=== PATIENT | male | born 1990 | race Caucasian/White ===

== ENCOUNTER 2016-08-08 10:07 | Emergency (ER) | payer OTHER ==
[2016-08-08 11:17] LABS: HEMOGLOBIN 15.9 gm/dl (14.0-17.5); RED BLOOD COUNT 5.79 M/UL (4.20-5.50); WHITE BLOOD COUNT 8.2 K/UL (4.5-11.0)
[2016-08-08 11:55] LABS: BUN/CREATININE RATIO 24 (0-10)
== END 2016-08-08 13:45 | disposition home or self-care (01) ==
LOC: ER1 10:07
PROVIDERS: Physician Assistant
DX: R07.89 Other chest pain (principal); I10 Essential (primary) hypertension; Z88.2 Allergy status to sulfonamides; Z88.5 Allergy status to narcotic agent; Z88.1 Allergy status to other antibiotic agents; Z87.891 Personal history of nicotine dependence
CPT/HCPCS: 36415; 71010; 80053; 82550; 82553; 83874; 84484; 85025; 93005; 99285; J1885

== ENCOUNTER 2016-10-30 07:06 | Emergency (ER) | payer OTHER ==
[2016-10-30 07:52] LABS: HEMOGLOBIN 15.1 gm/dl (14.0-17.5); RED BLOOD COUNT 5.34 M/UL (4.20-5.50); WHITE BLOOD COUNT 9.6 K/UL (4.5-11.0)
[2016-10-30 08:11] LABS: BUN/CREATININE RATIO 22 (0-10)
== END 2016-10-30 08:48 | disposition home or self-care (01) ==
LOC: ER1 07:06
PROVIDERS: Emergency Medicine
DX: R07.9 Chest pain, unspecified (principal); F32.9 Major depressive disorder, single episode, unspecified; Z88.2 Allergy status to sulfonamides; Z88.5 Allergy status to narcotic agent; Z79.899 Other long term (current) drug therapy
CPT/HCPCS: 36415; 71020; 80053; 84484; 85025; 99285

== ENCOUNTER 2016-11-01 05:35 | Emergency (ER) | payer OTHER ==
[2016-11-01 06:53] LABS: BUN/CREATININE RATIO 33 (0-10); HEMOGLOBIN 14.6 gm/dl (14.0-17.5); RED BLOOD COUNT 5.08 M/UL (4.20-5.50); WHITE BLOOD COUNT 10.5 K/UL (4.5-11.0)
== END 2016-11-01 07:45 | disposition home or self-care (01) ==
LOC: ER1 05:35
PROVIDERS: Family Medicine
DX: R07.9 Chest pain, unspecified (principal); Z88.2 Allergy status to sulfonamides; Z88.1 Allergy status to other antibiotic agents; Z88.5 Allergy status to narcotic agent
CPT/HCPCS: 36415; 71010; 80053; 82150; 82550; 82553; 83690; 83874; 84484; 85025; 93005; 96374; 99285; C9113